=== PATIENT | female | born 1975 | race Two or more races ===

== ENCOUNTER 2021-11-19 06:58 | Emergency (ER) | payer OTHER ==
[2021-11-19 07:03] VITALS: TEMP 98.2; BMI 33.9
[2021-11-19] MEDS ORDERED: LACTATED RINGERS SOLUTION 1000 ML INFUS.BAG IV ONE (07:33)
[2021-11-19] MEDS ORDERED: MAG HYDROX/AL HYDROX/SIMETH 30 ML UNIT-DOSE CUP PO ONE (07:38)
[2021-11-19] MEDS ORDERED: FAMOTIDINE 20 MG/50 ML IVPB 20 MG/50 ML MG IVPB ONE ×2 (07:38→07:46)
[2021-11-19] MEDS ORDERED: ACETAMINOPHEN 1000 MG/100 ML BAG IVPB ONE (07:40)
[2021-11-19] MEDS ORDERED: ACETAMINOPHEN INJECTION 100 ML IVPB ONE (07:46)
[2021-11-19] MEDS ORDERED: MAG HYDROX/AL HYDROX/SIMETH 30 ML UNIT-DOSE CUP ONE (07:46)
[2021-11-19] MEDS ORDERED: ONDANSETRON 4 MG/2 ML VIAL IVPUSH ONE (08:22)
[2021-11-19] MEDS ORDERED: ONDANSETRON 4 MG/2 ML VIAL ONE (08:32)
[2021-11-19 08:58] LABS: BASO % 0.8 % (0-2.0); EOS % 1.4 % (0-4.5); HEMATOCRIT 35.5 % (32.4-45.2); HEMOGLOBIN 11.6 GM/dL (10.7-15.3); LYMPH % 33.6 % (8-40); MCH 26.2 pg (25.7-33.7); MCHC 32.6 g/dl (32.0-36.0); MEAN CELL VOLUME 80.4 fl (80-96); MEAN PLT VOLUME 8.4 fl (7.5-11.1); MONO % 9.6 % (3.8-10.2); NEUT % 54.6 % (42.8-82.8); PLATELET COUNT 393 10^3/uL (134-434); RBC 4.41 M/mm3 (3.60-5.2); RDW 15.8 % (11.6-15.6); WHITE BLOOD COUNT 8.4 K/mm3 (4.0-10.0)
[2021-11-19 09:04] LABS: PROTHROMBIN TIME (PATIENT) 11.5 SEC (9.7-13.0)
[2021-11-19 09:07] LABS: ACTIVATED PTT 28.4 SECONDS (25.2-36.5)
[2021-11-19 09:09] LABS: CALCIUM 9.5 mg/dL (8.5-10.1)
[2021-11-19 09:10] LABS: ALBUMIN 3.8 g/dl (3.4-5.0); BLOOD UREA NITROGEN 15.2 mg/dL (7-18)
[2021-11-19 09:12] LABS: CREATININE 0.7 mg/dL (0.55-1.3)
[2021-11-19 09:14] LABS: BILIRUBIN,TOTAL 0.3 mg/dL (0.2-1); TOT PROT 7.5 g/dl (6.4-8.2)
[2021-11-19] MEDS ORDERED: MECLIZINE HCL 25 MG TABLET (FP) PO ONE (10:53)
[2021-11-19 11:25] LABS: EPI CELLS 18 /uL (0-25.1); HYALINE CASTS 0 /uL (0-3.1); PH,URINE 5.5 (5.0-8.0); URINE APPEARANCE CLEAR; URINE BACTERIA 475 /uL (0-1359); URINE BILIRUBIN NEGATIVE (NEGATIVE); URINE COLOR YELLOW; URINE GLUCOSE (UA) NEGATIVE (NEGATIVE); URINE KETONE NEGATIVE (NEGATIVE); URINE LEUK ESTERASE TRACE (NEGATIVE); URINE NITRITE NEGATIVE (NEGATIVE); URINE PROTEIN NEGATIVE (NEGATIVE); URINE RBC 5 /uL (0-23.9); URINE UROBILINOGEN 0.2 mg/dL (0.2-1.0); URINE WBC 73 /uL (0-25.8)
[2021-11-19] MEDS ORDERED: MECLIZINE HCL 25 MG TABLET (FP) ONE (11:49)
[2021-11-19 15:54] VITALS: BP 128/76; PULSE 88
== END 2021-11-19 15:54 | disposition home or self-care (01) ==
LOC: JER 06:58
PROC: 3E033GC Introduction of Other Therapeutic Substance into Peripheral Vein, Percutaneous Approach (ICD-10-PCS; principal; 2021-11-19)
DX: R00.2 Palpitations (principal); R42 Dizziness and giddiness; R07.9 Chest pain, unspecified; R11.0 Nausea
CPT/HCPCS: 36415; 70450-TC; 71045-TC-FY; 71275-TC; 80053; 81003; 82962; 83690; 84484; 84703; 85025; 85379; 85610; 85730; 86850; 86900; 86901; 87086; 93005; 93010; 99285-25; C9803; Q9967; U0003; U0005